=== PATIENT | male | born 1975 | race American Indian/Alaskan Native ===

== ENCOUNTER 2019-06-02 22:23 | Emergency (ER) | payer OTHER ==
--- NOTE | 2019-06-03 01:06 | Cat Scan Report ---
CT HEAD WITHOUT CONTRAST INDICATION / CLINICAL INFORMATION: R sided numbness x2 days, h/o HTN. TECHNIQUE: All CT scans at this location are performed using CT dose reduction for ALARA by means of automated e xposure control. COMPARISON: None available. FINDINGS: HEMORRHAGE: None. EXTRA-AXIAL SPACES: Normal in size and morphology for the patient's age. Incidental note is made of o ssification of the anterior falx. VENTRICULAR SYSTEM: Normal in size and morphology for the patient's age. CEREBRAL PARENCHYMA: No significant abnormality. No acute territorial infarct. MIDLINE SHIFT OR HERNIATION: None. CEREBELLUM / BRAINSTEM: No significant abnormality. ORBITS: Normal as visualized. SOFT TISSUES of HEAD: No significant abnormality. CALVARIUM: No significant abnormality. PARANASAL SINUSES / MASTOID AIR CELLS: Normal as visualized. ADDITIONAL FINDINGS: None. IMPRESSION: 1. No acute intracranial abnormality. Signer Name: Rakesh Hough MD Signed: 06/03/2019 1:02 AM Workstation Name: [id number]
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
[2019-06-03 05:52] VITALS: BP 133/85
== END 2019-06-03 05:05 | disposition home or self-care (01) ==
LOC: ED 22:23
DX: M54.12 Radiculopathy, cervical region (principal); M54.16 Radiculopathy, lumbar region; I10 Essential (primary) hypertension; V85.9XXA Unspecified occupant of special construction vehicle injured in nontraffic accident, initial encounter; Y93.89 Activity, other specified; Y92.89 Other specified places as the place of occurrence of the external cause; Y99.8 Other external cause status
CPT/HCPCS: 70450; 99283